=== PATIENT | male | born 1960 | race Caucasian/White ===

== ENCOUNTER 2016-06-15 11:48 | Outpatient (CLI) ==
[2015-07-29 15:31] VITALS: BMI 31.2
[2016-06-15 12:04] LABS: BASOPHILS # (AUTO) 0.1 K/uL (0-0.2); BASOPHILS % (AUTO) 0.6 % (0.0-3.0); EOSINOPHILS # (AUTO) 0.3 K/ul (0.0-0.7); EOSINOPHILS % (AUTO) 3.1 % (0.0-7.0); HEMATOCRIT 41.8 % (42.0-52.0); HEMOGLOBIN 13.5 g/dl (14.0-18.0); IMMATURE GRANULOCYTE % (AUTO) 0.6 % (0.0-5.0); LYMPHOCYTES # (AUTO) 2.2 K/uL (0.60-3.4); LYMPHOCYTES % (AUTO) 23.7 (10.0-50.0); MEAN CORPUSCULAR HEMOGLOBIN 28.1 pg (27.0-31.0); MEAN CORPUSCULAR HGB CONC 32.3 (31.8-35.4); MEAN CORPUSCULAR VOLUME 86.9 fl (80.0-94.0); MONOCYTES # (AUTO) 0.6 K/uL (0.4-2.0); MONOCYTES % (AUTO) 6.5 (0-10); NEUTROPHILS # (AUTO) 6.2 K/ul (2.0-6.9); NEUTROPHILS % (AUTO) 65.5; PLATELET COUNT 227 10^3/uL (140-440); RED BLOOD COUNT 4.81 10^6/ul (4.70-6.10); WHITE BLOOD COUNT 9.42 K/ul (4.2-10.2)
[2016-06-15 12:42] LABS: ALBUMIN 3.5 g/dL (3.4-5.0); ALBUMIN/GLOBULIN RATIO 0.74; ANION GAP 12.8; BILIRUBIN,TOTAL 0.45 mg/dL (0.00-1.20); BUN/CREATININE RATIO 20.52; CREATININE 1.51 mg/dL (0.60-1.10); POTASSIUM 4.8 mmol/L (3.5-5.1); TOTAL PROTEIN 8.2 g/dL (6.4-8.2)
== END 2016-06-15 11:49 | disposition home or self-care (01) ==
LOC: LAB 11:48
PROVIDERS: ATTEND Nurse Practitioner Family
DX: E11.40 Type 2 diabetes mellitus with diabetic neuropathy, unspecified (principal); I10 Essential (primary) hypertension; E78.5 Hyperlipidemia, unspecified
CPT/HCPCS: 36415; 80053; 80061; 83036; 84443; 85025

== ENCOUNTER 2016-06-20 12:41 | Outpatient (CLI) ==
[2015-07-29 15:31] VITALS: BMI 31.2
--- NOTE | 2016-06-20 13:43 | DI ---
EXAM: Radiographs, right forearm HISTORY: Right forearm pain. COMPARISON: None available. TECHNIQUE: Two views. FINDINGS: Bone mineralization is normal. There is no fracture or dislocation. The joint spaces ar e maintained. No focal soft tissue abnormality is seen. Extensive atherosclerotic calcifications ar e present. IMPRESSION: No fracture or dislocation.
--- NOTE | 2016-06-20 14:33 | CT ---
EXAM: CT right shoulder HISTORY: Chronic right shoulder pain. TECHNIQUE: CT right shoulder without contrast. Detailed axial sections. Coronal and sagittal re-f ormations. FINDINGS: No comparison CT. Bone density appears normal. Glenohumeral joint and upper humerus appear normal. There is mild AC joint osteoarthritis. No joint effusion. Soft tissues are unremarkable. Incidental note of elevat ed right hemidiaphragm with adjacent discoid atelectasis. IMPRESSION: 1. Early acromioclavicular joint osteoarthritis currently mild. 2. Glenohumeral joint and proximal humerus as well as the scapula are within normal limits. 3. If symptoms persist, consider correlation with MRI.
== END 2016-06-20 12:42 | disposition home or self-care (01) ==
LOC: RAD 12:41
PROVIDERS: ATTEND Nurse Practitioner Family
DX: M79.631 Pain in right forearm (principal); M25.511 Pain in right shoulder

== ENCOUNTER 2016-06-22 13:58 | Outpatient (CLI) ==
[2015-07-29 15:31] VITALS: BMI 31.2
[2016-06-23 08:19] LABS: RHEUMATOID ARTHRITIS FACTOR < 10.0 IU/mL (0.0-13.9)
[2016-06-23 12:03] LABS: ANTI-NUCLEAR ANTIBODY SCREEN Negative (Negative)
== END 2016-06-22 13:59 | disposition home or self-care (01) ==
LOC: RAD 13:58 → LAB 13:59
PROVIDERS: ATTEND Nurse Practitioner Family
DX: M25.50 Pain in unspecified joint (principal)
CPT/HCPCS: 36415; 86038; 86140; 86430

== ENCOUNTER 2016-09-13 09:45 | Outpatient (CLI) ==
[2015-07-29 15:31] VITALS: BMI 31.2
[2016-09-13 10:29] LABS: ALBUMIN 3.7 g/dL (3.4-5.0); ALBUMIN/GLOBULIN RATIO 0.93; ANION GAP 13.6; BILIRUBIN,TOTAL 0.38 mg/dL (0.00-1.20); BUN/CREATININE RATIO 20.83; CALCIUM 9.6 mg/dL (8.2-10.2); CHOL/HDL RATIO 5.9 (4.5-6.4); CREATININE 1.92 mg/dL (0.60-1.10); POTASSIUM 4.6 mmol/L (3.5-5.1); TOTAL PROTEIN 7.7 g/dL (6.4-8.2)
== END 2016-09-13 09:46 | disposition home or self-care (01) ==
LOC: RAD 09:45
PROVIDERS: ATTEND Nurse Practitioner Family
DX: E78.5 Hyperlipidemia, unspecified (principal); I10 Essential (primary) hypertension; E11.40 Type 2 diabetes mellitus with diabetic neuropathy, unspecified
CPT/HCPCS: 36415; 80053; 80061; 83036

== ENCOUNTER 2016-12-19 12:38 | Outpatient (CLI) ==
[2015-07-29 15:31] VITALS: BMI 31.2
[2016-12-19 13:31] LABS: ALBUMIN 3.6 g/dL (3.4-5.0); ALBUMIN/GLOBULIN RATIO 0.82; ANION GAP 13.3; BILIRUBIN,TOTAL 0.39 mg/dL (0.00-1.20); BUN/CREATININE RATIO 17.85; CALCIUM 10.3 mg/dL (8.2-10.2); CHOL/HDL RATIO 6.1 (4.5-6.4); CREATININE 1.68 mg/dL (0.60-1.10); POTASSIUM 4.3 mmol/L (3.5-5.1)
== END 2016-12-19 12:39 | disposition home or self-care (01) ==
LOC: LAB 12:38
PROVIDERS: ATTEND Nurse Practitioner Family
DX: E11.40 Type 2 diabetes mellitus with diabetic neuropathy, unspecified (principal); I10 Essential (primary) hypertension; E78.5 Hyperlipidemia, unspecified
CPT/HCPCS: 36415; 80053; 80061; 83036

== ENCOUNTER 2017-03-22 08:57 | Outpatient (CLI) ==
[2015-07-29 15:31] VITALS: BMI 31.2
[2017-03-22 09:22] LABS: BASOPHILS # (AUTO) 0.1 K/uL (0-0.2); BASOPHILS % (AUTO) 0.6 % (0.0-3.0); EOSINOPHILS # (AUTO) 0.2 K/ul (0.0-0.7); EOSINOPHILS % (AUTO) 1.7 % (0.0-7.0); HEMATOCRIT 40.7 % (42.0-52.0); HEMOGLOBIN 12.7 g/dl (14.0-18.0); IMMATURE GRANULOCYTE % (AUTO) 0.7 % (0.0-5.0); LYMPHOCYTES # (AUTO) 2.4 K/uL (0.60-3.4); LYMPHOCYTES % (AUTO) 26.7 (10.0-50.0); MEAN CORPUSCULAR HEMOGLOBIN 27.8 pg (27.0-31.0); MEAN CORPUSCULAR HGB CONC 31.2 (31.8-35.4); MEAN CORPUSCULAR VOLUME 89.1 fl (80.0-94.0); MONOCYTES # (AUTO) 0.7 K/uL (0.4-2.0); MONOCYTES % (AUTO) 7.9 (0-10); NEUTROPHILS # (AUTO) 5.7 K/ul (2.0-6.9); NEUTROPHILS % (AUTO) 62.4; PLATELET COUNT 253 10^3/uL (140-440); RED BLOOD COUNT 4.57 10^6/ul (4.70-6.10); WHITE BLOOD COUNT 9.04 K/ul (4.2-10.2)
[2017-03-22 09:39] LABS: ALBUMIN 3.4 g/dL (3.4-5.0); ALBUMIN/GLOBULIN RATIO 0.79; ANION GAP 13.9; BILIRUBIN,TOTAL 0.4 mg/dL (0.00-1.20); BUN/CREATININE RATIO 23.66; CALCIUM 9.6 mg/dL (8.2-10.2); CREATININE 1.69 mg/dL (0.60-1.10); POTASSIUM 4.9 mmol/L (3.5-5.1); TOTAL PROTEIN 7.7 g/dL (6.4-8.2)
== END 2017-03-22 08:58 | disposition home or self-care (01) ==
LOC: LAB 08:57
PROVIDERS: ATTEND Nurse Practitioner Family
DX: E78.1 Pure hyperglyceridemia (principal); E11.40 Type 2 diabetes mellitus with diabetic neuropathy, unspecified; I10 Essential (primary) hypertension; E78.5 Hyperlipidemia, unspecified; Z12.5 Encounter for screening for malignant neoplasm of prostate; Z86.73 Personal history of transient ischemic attack (TIA), and cerebral infarction without residual deficits
CPT/HCPCS: 36415; 80053; 80061; 83036; 85025

== ENCOUNTER 2017-07-14 09:44 | Outpatient (CLI) ==
[2015-07-29 15:31] VITALS: BMI 31.2
== END 2017-07-14 09:45 | disposition home or self-care (01) ==
LOC: LAB 09:44
PROVIDERS: ATTEND Nurse Practitioner Family
DX: E11.40 Type 2 diabetes mellitus with diabetic neuropathy, unspecified (principal); I10 Essential (primary) hypertension; E78.1 Pure hyperglyceridemia; E78.5 Hyperlipidemia, unspecified; Z86.73 Personal history of transient ischemic attack (TIA), and cerebral infarction without residual deficits
CPT/HCPCS: 36415; 80053; 80061; 83036; 84443; 85025

== ENCOUNTER 2017-07-24 11:26 | Outpatient (CLI) ==
[2015-07-29 15:31] VITALS: BMI 31.2
== END 2017-07-24 11:27 | disposition home or self-care (01) ==
LOC: CAR 11:26
PROVIDERS: ATTEND Nurse Practitioner Family
DX: R06.02 Shortness of breath (principal); M79.89 Other specified soft tissue disorders
CPT/HCPCS: 36415; 83880; 93005; 93010

== ENCOUNTER 2017-11-20 16:32 | Outpatient (CLI) ==
[2015-07-29 15:31] VITALS: BMI 31.2
== END 2017-11-20 16:33 | disposition home or self-care (01) ==
LOC: RHC-LAB 16:32
PROVIDERS: ATTEND Nurse Practitioner Family
DX: E08.621 Diabetes mellitus due to underlying condition with foot ulcer (principal)
CPT/HCPCS: 87070; 87186

== ENCOUNTER 2017-11-22 13:22 | Outpatient (CLI) ==
[2015-07-29 15:31] VITALS: BMI 31.2
--- NOTE | 2017-11-22 14:05 | US ---
EXAM: Right lower extremity venous Doppler History: Right lower extremity pain. Technique: Multiple sonographic images through the right lower extremity were obtained. Color duple x Doppler was used to interrogate vascular flow. Findings: The right common femoral, greater saphenous, profunda, superficial femoral, popliteal, per [place], posterior tibial and anterior tibial veins demonstrate spontaneous flow with normal compressio n and normal augmentation. Impression: No sonographic evidence for deep venous thrombosis.
== END 2017-11-22 13:23 | disposition home or self-care (01) ==
LOC: RAD 13:22
PROVIDERS: ATTEND Nurse Practitioner Family
DX: M79.604 Pain in right leg (principal)

== ENCOUNTER 2017-11-29 09:48 | Outpatient (CLI) ==
[2015-07-29 15:31] VITALS: BMI 31.2
== END 2017-11-29 09:49 | disposition home or self-care (01) ==
LOC: WOUND 09:48
PROVIDERS: ATTEND Nurse Practitioner Family
DX: E11.621 Type 2 diabetes mellitus with foot ulcer (principal); L97.425 Non-pressure chronic ulcer of left heel and midfoot with muscle involvement without evidence of necrosis; L97.521 Non-pressure chronic ulcer of other part of left foot limited to breakdown of skin; Z86.73 Personal history of transient ischemic attack (TIA), and cerebral infarction without residual deficits
CPT/HCPCS: 36415; 80053; 80061; 83036

== ENCOUNTER 2017-12-13 09:35 | Outpatient (CLI) ==
[2015-07-29 15:31] VITALS: BMI 31.2
== END 2017-12-13 09:36 | disposition home or self-care (01) ==
LOC: WOUND 09:35
PROVIDERS: ATTEND Nurse Practitioner Family
DX: E11.621 Type 2 diabetes mellitus with foot ulcer (principal); L97.425 Non-pressure chronic ulcer of left heel and midfoot with muscle involvement without evidence of necrosis; L97.521 Non-pressure chronic ulcer of other part of left foot limited to breakdown of skin; Z86.73 Personal history of transient ischemic attack (TIA), and cerebral infarction without residual deficits
CPT/HCPCS: 11042; 36415; 80053; 80061; 83036

== ENCOUNTER 2017-12-20 09:22 | Outpatient (CLI) ==
[2015-07-29 15:31] VITALS: BMI 31.2
== END 2017-12-20 09:23 | disposition home or self-care (01) ==
LOC: WOUND 09:22
PROVIDERS: ATTEND Nurse Practitioner Family
DX: E11.621 Type 2 diabetes mellitus with foot ulcer (principal); L97.425 Non-pressure chronic ulcer of left heel and midfoot with muscle involvement without evidence of necrosis; Z86.73 Personal history of transient ischemic attack (TIA), and cerebral infarction without residual deficits
CPT/HCPCS: 11042; 36415; 80053

== ENCOUNTER 2017-12-27 09:23 | Outpatient (CLI) ==
[2015-07-29 15:31] VITALS: BMI 31.2
== END 2017-12-27 09:24 | disposition home or self-care (01) ==
LOC: WOUND 09:23
PROVIDERS: ATTEND Nurse Practitioner Family
DX: E11.621 Type 2 diabetes mellitus with foot ulcer (principal); L97.425 Non-pressure chronic ulcer of left heel and midfoot with muscle involvement without evidence of necrosis; Z86.73 Personal history of transient ischemic attack (TIA), and cerebral infarction without residual deficits
CPT/HCPCS: 11042

== ENCOUNTER 2018-01-03 09:56 | Outpatient (CLI) ==
[2015-07-29 15:31] VITALS: BMI 31.2
== END 2018-01-03 09:57 | disposition home or self-care (01) ==
LOC: WOUND 09:56
PROVIDERS: ATTEND Nurse Practitioner Family
DX: E11.621 Type 2 diabetes mellitus with foot ulcer (principal); L97.425 Non-pressure chronic ulcer of left heel and midfoot with muscle involvement without evidence of necrosis; Z86.73 Personal history of transient ischemic attack (TIA), and cerebral infarction without residual deficits
CPT/HCPCS: 36415; 80053

== ENCOUNTER 2018-01-10 10:12 | Outpatient (CLI) ==
[2015-07-29 15:31] VITALS: BMI 31.2
== END 2018-01-10 10:13 | disposition home or self-care (01) ==
LOC: WOUND 10:12
PROVIDERS: ATTEND Nurse Practitioner Family
DX: E11.621 Type 2 diabetes mellitus with foot ulcer (principal); L97.425 Non-pressure chronic ulcer of left heel and midfoot with muscle involvement without evidence of necrosis; Z86.73 Personal history of transient ischemic attack (TIA), and cerebral infarction without residual deficits
CPT/HCPCS: 11042

== ENCOUNTER 2018-01-17 09:51 | Outpatient (CLI) ==
[2015-07-29 15:31] VITALS: BMI 31.2
== END 2018-01-17 09:52 | disposition home or self-care (01) ==
LOC: WOUND 09:51
PROVIDERS: ATTEND Nurse Practitioner Family
DX: E11.621 Type 2 diabetes mellitus with foot ulcer (principal); L97.425 Non-pressure chronic ulcer of left heel and midfoot with muscle involvement without evidence of necrosis; Z86.73 Personal history of transient ischemic attack (TIA), and cerebral infarction without residual deficits
CPT/HCPCS: 11042

== ENCOUNTER 2018-01-24 09:56 | Outpatient (CLI) ==
[2015-07-29 15:31] VITALS: BMI 31.2
== END 2018-01-24 09:57 | disposition home or self-care (01) ==
LOC: WOUND 09:56
PROVIDERS: ATTEND Nurse Practitioner Family
DX: E11.621 Type 2 diabetes mellitus with foot ulcer (principal); L97.425 Non-pressure chronic ulcer of left heel and midfoot with muscle involvement without evidence of necrosis; Z86.73 Personal history of transient ischemic attack (TIA), and cerebral infarction without residual deficits

== ENCOUNTER 2018-01-31 09:42 | Outpatient (CLI) ==
[2015-07-29 15:31] VITALS: BMI 31.2
== END 2018-01-31 09:43 | disposition home or self-care (01) ==
LOC: WOUND 09:42
PROVIDERS: ATTEND Nurse Practitioner Family
DX: E11.621 Type 2 diabetes mellitus with foot ulcer (principal); L97.425 Non-pressure chronic ulcer of left heel and midfoot with muscle involvement without evidence of necrosis; Z86.73 Personal history of transient ischemic attack (TIA), and cerebral infarction without residual deficits
CPT/HCPCS: 11042

== ENCOUNTER 2018-02-07 09:49 | Outpatient (CLI) ==
[2015-07-29 15:31] VITALS: BMI 31.2
== END 2018-02-07 09:50 | disposition home or self-care (01) ==
LOC: WOUND 09:49
PROVIDERS: ATTEND Nurse Practitioner Family
DX: E11.621 Type 2 diabetes mellitus with foot ulcer (principal); L97.425 Non-pressure chronic ulcer of left heel and midfoot with muscle involvement without evidence of necrosis; Z86.73 Personal history of transient ischemic attack (TIA), and cerebral infarction without residual deficits

== ENCOUNTER 2018-02-21 09:24 | Outpatient (CLI) ==
[2015-07-29 15:31] VITALS: BMI 31.2
== END 2018-02-21 09:25 | disposition home or self-care (01) ==
LOC: WOUND 09:24
PROVIDERS: ATTEND Nurse Practitioner Family
DX: E11.621 Type 2 diabetes mellitus with foot ulcer (principal); L97.425 Non-pressure chronic ulcer of left heel and midfoot with muscle involvement without evidence of necrosis; Z86.73 Personal history of transient ischemic attack (TIA), and cerebral infarction without residual deficits

== ENCOUNTER 2018-07-13 09:21 | Outpatient (CLI) ==
[2015-07-29 15:31] VITALS: BMI 31.2
== END 2018-07-13 09:22 | disposition home or self-care (01) ==
LOC: LAB 09:21
PROVIDERS: ATTEND Nurse Practitioner Family
DX: E11.40 Type 2 diabetes mellitus with diabetic neuropathy, unspecified (principal); I10 Essential (primary) hypertension; E78.5 Hyperlipidemia, unspecified; Z12.5 Encounter for screening for malignant neoplasm of prostate
CPT/HCPCS: 36415; 80053; 80061; 83036; 85025

== ENCOUNTER 2018-11-11 12:40 | Outpatient (CLI) ==
[2015-07-29 15:31] VITALS: BMI 31.2
== END 2018-11-11 12:41 | disposition home or self-care (01) ==
LOC: LAB 12:40
PROVIDERS: ATTEND Nurse Practitioner Family
DX: E78.5 Hyperlipidemia, unspecified (principal); I10 Essential (primary) hypertension; E11.40 Type 2 diabetes mellitus with diabetic neuropathy, unspecified; Z86.73 Personal history of transient ischemic attack (TIA), and cerebral infarction without residual deficits
CPT/HCPCS: 36415; 80053; 80061; 83036; 84443; 85025